=== PATIENT | male | born 1990 | race Caucasian/White ===

== ENCOUNTER 2021-09-09 14:09 | Emergency (ER) | payer BC, OTHER ==
[~2021-09-09] VITALS: Ht 185.4 cm; Wt 68.0 kg
[2021-09-09 15:33] VITALS: BP 114/81
[2021-09-09] MEDS ORDERED: KETOROLAC TROMETH 60MG/2ML VIAL IM ONE (16:00)
[2021-09-09] MEDS ORDERED: IBUP800T26 PO (16:10)
== END 2021-09-09 16:25 | disposition home or self-care (01) ==
LOC: ER 14:09
DX: S22.41XA Multiple fractures of ribs, right side, initial encounter for closed fracture (principal); V87.8XXA Person injured in other specified noncollision transport accidents involving motor vehicle (traffic), initial encounter; Y93.55 Activity, bike riding; Y92.89 Other specified places as the place of occurrence of the external cause; Y99.8 Other external cause status
CPT/HCPCS: 71046; 73030; 99284; J1885